=== PATIENT | female | born 1975 | race African-American/Black ===

== ENCOUNTER 2023-02-10 18:03 | Emergency (ER) | payer BC ==
[~2023-02-10] VITALS: Ht 170.2 cm; Wt 70.3 kg
[2023-02-10] MEDS ORDERED: CLINDAMYCIN HCL 300 MG CAPSULE ONE (18:36)
[2023-02-10] MEDS ORDERED: CLINDAMYCIN HCL 150 MG CAPSULE PO ONE (18:45)
[2023-02-10] MEDS ORDERED: CLIN300C12 PO (18:46)
[2023-02-10] MEDS ORDERED: CIPR-262 PO (18:54)
[2023-02-10] MEDS ORDERED: CIPROFLOXACIN HCL 250 MG TABLET PO ONE (19:00)
[2023-02-10] MEDS ORDERED: CIPROFLOXACIN HCL 250 MG TABLET ONE (19:00)
[2023-02-10 19:03] VITALS: BP 120/77
== END 2023-02-10 19:04 | disposition home or self-care (01) ==
LOC: ER 18:06
DX: S62.634A Displaced fracture of distal phalanx of right ring finger, initial encounter for closed fracture (principal); S71.151A Open bite, right thigh, initial encounter; S61.254A Open bite of right ring finger without damage to nail, initial encounter; S61.256A Open bite of right little finger without damage to nail, initial encounter; J45.909 Unspecified asthma, uncomplicated; Z79.2 Long term (current) use of antibiotics; W54.0XXA Bitten by dog, initial encounter; Y93.89 Activity, other specified; Y92.89 Other specified places as the place of occurrence of the external cause; Y99.8 Other external cause status
CPT/HCPCS: 73140; A4663